=== PATIENT | female | born 1955 | race Caucasian/White ===

== ENCOUNTER → 2017-08-27 | Outpatient (CLI) | payer BC | LOC: COL.RAD 12:25 | DX: I31.3 Pericardial effusion (noninflammatory) (principal); Z85.850 Personal history of malignant neoplasm of thyroid | CPT/HCPCS: Q9967 ==

== ENCOUNTER → 2018-05-22 | Outpatient (CLI) | payer BC | LOC: MC.RAD 12:52 | DX: R22.9 Localized swelling, mass and lump, unspecified (principal) ==

== ENCOUNTER 2019-09-17 08:04 | Day surgery (SDC) | payer MEDICARE, OTHER ==
[~2019-09-17] VITALS: Ht 167.6 cm; Wt 91.8 kg
[2019-09-17] VITALS (10 sets, daily range): BP systolic 142–180; BP diastolic 55–80; PULSE 53–68; TEMP 97.5–98.4
[2019-09-17] MEDS ORDERED: SYNTHROID0.088 MG/T PO (08:40)
[2019-09-17] MEDS ORDERED: TYLENOL 500MG500 MG PO (09:10)
--- NOTE | 2019-09-17 10:04 | NUR ---
Initial visit; Patient requested prayer prior to her surgical procedure. Dilcia thanked [employer] for prayer and encouragement.
--- NOTE | 2019-09-17 11:36 | NUR ---
Patient returns to room 3 per cart and is awake and alert. IV fluids infusing. Temp 97.4 and denies pain or nausea. Siderails up x2 and call light in reach. Sipping on water and juice.
--- NOTE | 2019-09-17 11:51 | NUR ---
Resting and offers no complaints.
--- NOTE | 2019-09-17 12:06 | NUR ---
Continues to rest and taking water and juice.
--- NOTE | 2019-09-17 12:15 | NUR ---
Assisted up to the bathroom and gait steady.
--- NOTE | 2019-09-17 12:21 | NUR ---
Resting on cart and states that she is having some lower abdominal pain.
--- NOTE | 2019-09-17 12:28 | NUR ---
Tylenol 650mg po given and will continue to monitor.
--- NOTE | 2019-09-17 12:36 | NUR ---
Eating muffin and sipping on juice.
[2019-09-17] MEDS ORDERED: PYRIDIUM 100MG100 MG PO (12:55)
--- NOTE | 2019-09-17 13:01 | NUR ---
States that the pain is increasing and rates pain at 6/10.
--- NOTE | 2019-09-17 13:28 | NUR ---
Dr. Delgado notified of the patient's increasing pain and medicated with B$O suppository and order for IV Toradol 30mg given. Also received order for Zofran 8mg IV to be called to pharmacy.
--- NOTE | 2019-09-17 13:31 | NUR ---
Less pain and has been resting. Room air sats 97%. Sipping on water.
--- NOTE | 2019-09-17 14:00 | NUR ---
Script for Pyridium and Zofran called to [facility] in [place].
--- NOTE | 2019-09-17 14:30 | NUR ---
Again up to the bathroom and voids. States that she is feeling better after voiding the second time. INT needle discontinued and site is free of redness. Patient dresses self.
--- NOTE | 2019-09-17 15:00 | NUR ---
Patient dismissal instructions given and voices understanding of these.
--- NOTE | 2019-09-17 15:06 | NUR ---
Dismissed to home driven by spouse and taken to the front door per wheelchair by Belkis AMADO and assisted into vehicle with instructions in hand.
== END 2019-09-17 15:06 | disposition home or self-care (01) ==
LOC: SDCO 08:04
DX: N13.5 Crossing vessel and stricture of ureter without hydronephrosis (principal); R31.21 Asymptomatic microscopic hematuria; I12.9 Hypertensive chronic kidney disease with stage 1 through stage 4 chronic kidney disease, or unspecified chronic kidney disease; N18.9 Chronic kidney disease, unspecified; I08.0 Rheumatic disorders of both mitral and aortic valves; F41.9 Anxiety disorder, unspecified; E89.0 Postprocedural hypothyroidism; K21.9 Gastro-esophageal reflux disease without esophagitis; Z80.52 Family history of malignant neoplasm of bladder; Z80.3 Family history of malignant neoplasm of breast; Z88.5 Allergy status to narcotic agent; Z88.8 Allergy status to other drugs, medicaments and biological substances; Z79.899 Other long term (current) drug therapy; Z85.828 Personal history of other malignant neoplasm of skin; Z98.51 Tubal ligation status
CPT/HCPCS: C1769; C2617; J0360; J0690; J1170; J1885; J2270; J2405; J2704; J3010; J7120; Q9967

== ENCOUNTER → 2020-01-11 | Outpatient (CLI) | payer MEDICARE, OTHER ==
[~2020-01-11] MED LIST: PYRIDIUM 100MG100 MG PO; SYNTHROID0.088 MG/T PO; TYLENOL 500MG500 MG PO
== END ==
LOC: MC.RAD 09:30
DX: N63.10 Unspecified lump in the right breast, unspecified quadrant (principal); N63.20 Unspecified lump in the left breast, unspecified quadrant

== ENCOUNTER → 2020-08-18 | Outpatient (CLI) | payer MEDICARE, OTHER | LOC: MC.RAD 10:54 | DX: R92.8 Other abnormal and inconclusive findings on diagnostic imaging of breast (principal); Z85.3 Personal history of malignant neoplasm of breast ==

== ENCOUNTER → 2021-02-21 | Outpatient (CLI) | payer MEDICARE, OTHER | LOC: MC.RAD 13:45 | DX: C50.811 Malignant neoplasm of overlapping sites of right female breast (principal); C50.812 Malignant neoplasm of overlapping sites of left female breast; Z98.890 Other specified postprocedural states ==

== ENCOUNTER → 2021-09-25 | Outpatient (CLI) | payer MEDICARE, OTHER | LOC: MC.RAD 09:00 | DX: C50.811 Malignant neoplasm of overlapping sites of right female breast (principal); C50.812 Malignant neoplasm of overlapping sites of left female breast ==

== ENCOUNTER → 2023-07-02 | Outpatient (CLI) | payer MEDICARE | LOC: MC.RAD 09:55 | DX: Z12.31 Encounter for screening mammogram for malignant neoplasm of breast (principal); C50.812 Malignant neoplasm of overlapping sites of left female breast; C50.811 Malignant neoplasm of overlapping sites of right female breast ==